=== PATIENT | female | born 1960 | race Caucasian/White ===

== ENCOUNTER 2022-05-20 14:32 | Observation (INO) ==
[2022-05-20] MEDS ORDERED: FAMOTIDINE 20 MG TAB PO ONE (18:34)
[2022-05-20] MEDS ORDERED: PANTOprazole 40 MG TAB PO STA (18:34)
--- NOTE | 2022-05-20 18:36 | Emergency Department Note ---
Impression & Plan Acute upper gastrointestinal bleeding, Thrombocytopenia ED Provider Note NAME: JOSELO JULIAN AGE: 62 SEX: F : 1960 ARRIVES VIA: Walk-In INFORMANT: Patient, ED PROVIDER(S): Joselo Valencia DO CHIEF COMPLAINT: GI bleeding HPI: The patient is a 62-year-old female who presented to the emergency department for an evaluation of GI bleeding. The patient has a history of cirrhosis secondary to hepatitis. She states that she started noticing nausea and vomiting as well as upper abdominal pain. She also noticed black emesis as well as black stool. The patient states that she was seen at an outside hospital where she was into an observation bed for 28 hours. She signed herself out AGAINST MEDICAL ADVICE and came to our facility. She did call her GI doctor while she was in triage in our facility. She was told to stay at our facility for further work-up. The patient has a history of esophageal varices. ROS: See above HPI for pertinent positives & negatives. A total of 10 systems reviewed and were otherwise negative. PAST MEDICAL HISTORY: See Below PAST SURGICAL HISTORY: See Below FAMILY HISTORY: See Below SOCIAL HISTORY: See Below HOME MEDICATIONS: See Below ALLERGIES: See Below VITALS: See Below PHYSICAL EXAMINATION: GENERAL: Patient is awake alert in no acute distress patient is resting comfortably and showing no signs of anxiety EYES: The conjunctivae are clear. The pupils are round and reactive. EARS, NOSE, MOUTH AND THROAT: The nose is without any evidence of any deformity. Mucous membranes are moist. Tongue is midline. NECK: The neck is nontender and supple. RESPIRATORY: Normal respiratory effort is noted there is no evidence of wheezing rhonchi or rales CARDIOVASCULAR: Regular rate and rhythm noted there no murmurs rubs or gallops normal S1 normal S2. GASTROINTESTINAL: The abdomen is soft and mildly distended. There is no guarding or rigidity noted. Rectal exam revealed black stool which was strongly heme positive. MUSCULOSKELETAL/EXTREMITIES: There is no evidence of gross deformity full range of motion is noted in the hips and shoulders. SKIN: There is no obvious evidence of any rash. Pedal edema was noted bilaterally. NEUROLOGIC: Patient is awake alert and oriented x3. MEDICAL DECISION MAKING: The patient is a 62-year-old female who presented to the emergency department for an evaluation of GI bleeding. The patient has a history of esophageal varices as well as cirrhosis. She started noticing black stool recently. She was admitted at a different facility but left that facility because they offered no GI evaluation. The patient presented to our emergency department. Vital signs were relatively stable. The patient was found to have anemia with strongly heme positive black stool. Given the patient's history and comorbidities I discussed this case with the on-call [facility]ist. They have agreed to evaluate the patient in the emergency department for further management and disposition. The patient was treated with proton pump inhibitor as well as H2 blockers. Triage Nursing notes reviewed. Prior medical records reviewed Vital Signs: reviewed and remarkable for no significant abnormalities Differential diagnosis: Diverticulosis, AVM, coagulopathy, colitis, inflammatory bowel disease, malignancy, Alexandar-Lloyd tear, esophagitis, peptic ulcer disease, variceal bleed, gastritis, epistaxis, fissure, hemorrhoids, as well as other pathologies. ER treatment provided: See below Diagnostics interpreted by me: ECG: none Cardiac Monitoring: An order was placed for continuous cardiac monitoring. The monitor shows a rate of 81 bpm with sinus rhythm. Laboratory studies: As stated above and show below. Imaging studies: See below Consultation(s): I discussed this case with Dr. Andrea who is on-call for the [facility]ist group. Past Med/Surg History Medical History Chronic hepatitis C with cirrhosis Esophageal varices Social History Smoking Status: Former smoker Feels Safe at Home: Yes Allergies Allergies Allergy/AdvReac Type Severity Reaction Status Date / Time STERIODS AdvReac Severe SEVERE Uncoded 05/20/22 21:27 BODY ACHES Home Meds Home Medications Medication Instructions Recorded Confirmed furosemide 40 mg tablet 40 mg PO DAILY 05/20/22 05/20/22 spironolactone 25 mg/5 mL oral 100 mg PO DAILY 05/20/22 05/20/22 suspension (CaroSpir) Results & Data (ED) Vital Signs Vital Signs - 24 hr 05/20/22 15:03 05/20/22 19:26 05/20/22 19:07 Temperature 36.4 C L Temperature Source Temporal Artery Scan Pulse Rate 88 85 Pulse Rate from SpO2 Sensor Respiratory Rate 18 12 Respiratory Effort / Characteristics Non-Labored Respiratory Depth Normal Respiratory Pattern Regular Blood Pressure 109/73 117/78 Blood Pressure Mean 85 91 Blood Pressure Position Sitting Pulse Oximetry 99 98 100 Oxygen Delivery Method Room Air Room Air Room Air Sepsis Recent Fever Within 48 Hours No Sepsis New/Unexplained Change in Mental Status No Sepsis Action Taken by Nursing No Action Required 05/20/22 20:00 05/20/22 20:10 05/20/22 20:30 Temperature Temperature Source Pulse Rate 76 84 81 Pulse Rate from SpO2 Sensor 78 84 Respiratory Rate 16 19 15 Respiratory Effort / Characteristics Respiratory Depth Respiratory Pattern Blood Pressure 106/91 96/59 L 115/75 Blood Pressure Mean 96 71 88 Blood Pressure Position Pulse Oximetry 98 98 99 Oxygen Delivery Method Room Air Room Air Room Air Sepsis Recent Fever Within 48 Hours Sepsis New/Unexplained Change in Mental Status Sepsis Action Taken by Nursing 05/20/22 21:00 05/20/22 21:30 Temperature Temperature Source Pulse Rate 84 81 Pulse Rate from SpO2 Sensor Respiratory Rate 15 14 Respiratory Effort / Characteristics Respiratory Depth Respiratory Pattern Blood Pressure 124/74 119/74 Blood Pressure Mean 90 89 Blood Pressure Position Pulse Oximetry 98 98 Oxygen Delivery Method Room Air Room Air Sepsis Recent Fever Within 48 Hours Sepsis New/Unexplained Change in Mental Status Sepsis Action Taken by Jail Medications Current Medication List: was personally reviewed by me Laboratory Data Attestation: I reviewed the patient's lab results. Result diagrams: 05/20/22 19:09 05/20/22 19:09 Lab Results 05/20/22 05/20/22 05/20/22 Range/Units 19:04 19:09 19:09 WBC 2.67 L (4.8-10.8) K/ul RBC 3.00 L (3.93-5.22) M/uL Hgb 10.2 L (12.0-16.0) g/dl Hct 29.5 L (34.1-44.9) % MCV 98.3 (80.0-100.0) fL MCH 34.0 (25.0-34.0) pg MCHC 34.6 (32.0-36.0) g/dL RDW Std Deviation 51.8 H (36.4-46.3) fL RDW Coeff of Supa 14.5 (11.5-14.5) % Plt Count 53 L (130-400) K/uL MPV 11.9 (9.4-12.3) fL Platelet Estimate Decreased L (Normal) PT (9.0-12.0) Seconds INR (0.9-1.1) APTT (21.0-31.0) Seconds PTT Ratio Sodium (136-145) mmol/L Potassium (3.5-5.1) mmol/L Chloride (98-107) mmol/L Carbon Dioxide (21-32) mmol/L Anion Gap (3-11) BUN (6-23) mg/dl Creatinine (0.6-1.2) mg/dl Est Cr Clr Drug Dosing ml/min Est GFR ( Amer) ml/min Est GFR (Non-Af Amer) ml/min BUN/Creatinine Ratio (10-20) Glucose (70-99(Fasting)) mg/dl Calcium (8.5-10.1) mg/dl Total Bilirubin (0.2-1.0) mg/dl AST (13-39) U/L ALT (7-52) U/L Alkaline Phosphatase (34-104) U/L Total Protein (6.0-8.3) gm/dl Albumin (3.4-5.0) gm/dl Globulin (2.5-4.0) gm/dl Albumin/Globulin Ratio (0.9-2) SARS-CoV-2, RNA, NAAT NEGATIVE (NEGATIVE) Blood Type O Positive Antibody Screen NEGATIVE 05/20/22 05/20/22 Range/Units 19:09 19:09 WBC (4.8-10.8) K/ul RBC (3.93-5.22) M/uL Hgb (12.0-16.0) g/dl Hct (34.1-44.9) % MCV (80.0-100.0) fL MCH (25.0-34.0) pg MCHC (32.0-36.0) g/dL RDW Std Deviation (36.4-46.3) fL RDW Coeff of Supa (11.5-14.5) % Plt Count (130-400) K/uL MPV (9.4-12.3) fL Platelet Estimate (Normal) PT 13.3 H (9.0-12.0) Seconds INR 1.3 H (0.9-1.1) APTT 22.3 (21.0-31.0) Seconds PTT Ratio 0.8 Sodium 136 (136-145) mmol/L Potassium 3.9 (3.5-5.1) mmol/L Chloride 107 (98-107) mmol/L Carbon Dioxide 24 (21-32) mmol/L Anion Gap 5 (3-11) BUN 21 (6-23) mg/dl Creatinine 0.68 (0.6-1.2) mg/dl Est Cr Clr Drug Dosing 101.2 ml/min Est GFR ( Amer) 108.7 ml/min Est GFR (Non-Af Amer) 93.7 ml/min BUN/Creatinine Ratio 30.9 H (10-20) Glucose 99 (70-99(Fasting)) mg/dl Calcium 9.0 (8.5-10.1) mg/dl Total Bilirubin 1.9 H (0.2-1.0) mg/dl AST 73 H (13-39) U/L ALT 71 H (7-52) U/L Alkaline Phosphatase 53 (34-104) U/L Total Protein 7.7 (6.0-8.3) gm/dl Albumin 3.5 (3.4-5.0) gm/dl Globulin 4.2 H (2.5-4.0) gm/dl Albumin/Globulin Ratio 0.8 L (0.9-2) SARS-CoV-2, RNA, NAAT (NEGATIVE) Blood Type Antibody Screen Administered Medications Discontinued Medications Famotidine (Famotidine 20 Mg Tab) 20 mg PO NOW ONE Stop: 05/20/22 18:35 Last Admin: 05/20/22 19:02 Dose: 20 mg Documented By: LUCIANO Pantoprazole Sodium (Pantoprazole 40 Mg Tab) 40 mg PO NOW STA Stop: 05/20/22 18:35 Last Admin: 05/20/22 19:02 Dose: 40 mg Documented By: LUCIANO Imaging Data Radiologist's Impression: Chest X-Ray 05/20/22 18:43 XR chest 1V portable HISTORY: vomiting COMPARISON: None. FINDINGS: The lungs are clear. Cardiac silhouette is normal in size. No pleural effusions. No pneumothorax. IMPRESSION: No acute process. ACT 112: Negative or not required by law. Electronically signed by: Herb Dominique M.D. 05/20/2022 8:09 PM KUB X-Ray 05/20/22 18:43 KUB HISTORY: Vomiting. COMPARISON: None. FINDINGS: The bowel gas pattern is unremarkable. There are no dilated loops of small bowel to suggest an obstruction. No renal calculi. No ureteral calculi. No pneumoperitoneum or pneumatosis. The spleen appears enlarged. IMPRESSION: 1. No evidence for bowel obstruction. 2. The spleen appears enlarged. This can be confirmed with dedicated splenic ultrasound. ACT 112: Negative or not required by law. Electronically signed by: Herb Dominique M.D. 05/20/2022 8:58 PM Discharge Plan Visit Data Chief Complaint: Vomiting Stated Complaint: BLACK VOMIT ED Provider: Joselo Valencia Discharge Problem: Acute upper gastrointestinal bleeding, Thrombocytopenia Patient Disposition: Being Evaluated by Hospitalist Forms Stand Alone Forms: [facility] Prescriptions Prescriptions: No Action furosemide 40 mg tablet 40 mg PO DAILY CaroSpir 25 mg/5 mL suspension 100 mg PO DAILY Rx Instructions: TAKES 20 ML DAILY Referrals Referrals: PCP,NO [Physician] -
[2022-05-20 19:34] LABS: INR 1.3 (0.9-1.1); Partial Thromboplastin Ratio 0.8; Partial Thromboplastin Time 22.3 Seconds (21.0-31.0); Prothrombin Time 13.3 Seconds (9.0-12.0)
[2022-05-20 19:43] LABS: Hematocrit (blood only) 29.5 % (34.1-44.9); Hemoglobin 10.2 g/dl (12.0-16.0); Mean Corpuscular Hgb Conc 34.6 g/dL (32.0-36.0); Mean Corpuscular Volume 98.3 fL (80.0-100.0); Mean Platelet Volume 11.9 fL (9.4-12.3); Platelet Count 53 K/uL (130-400); Platelet Estimate Decreased (Normal); RDW Coefficient of Variation 14.5 % (11.5-14.5); RDW Standard Deviation 51.8 fL (36.4-46.3); White Blood Count 2.67 K/ul (4.8-10.8)
[2022-05-20 19:51] LABS: Albumin Globulin Ratio 0.8 (0.9-2); Albumin Level 3.5 gm/dl (3.4-5.0); BUN Creatinine Ratio 30.9 (10-20); Bilirubin,Total 1.9 mg/dl (0.2-1.0); Creatinine Clr Calc Pharmacy 101.2 ml/min; Est GFR (African American) 108.7 ml/min; Est GFR (Non-African American) 93.7 ml/min; Globulin 4.2 gm/dl (2.5-4.0); Potassium 3.9 mmol/L (3.5-5.1); Total Protein 7.7 gm/dl (6.0-8.3)
--- NOTE | 2022-05-20 20:11 | XRay Report ---
XR chest 1V portable HISTORY: vomiting COMPARISON: None. FINDINGS: The lungs are clear. Cardiac silhouette is normal in size. No pleural effusions. No pneumot horax. IMPRESSION: No acute process. ACT 112: Negative or not required by law. Electronically signed by: Herb Dominique M.D. 05/20/2022 8:09 PM
--- NOTE | 2022-05-20 21:00 | XRay Report ---
KUB HISTORY: Vomiting. COMPARISON: None. FINDINGS: The bowel gas pattern is unremarkable. There are no dilated loops of small bowel to suggest an obstruction. No renal calculi. No ureteral calculi. No pneumoperitoneum or pneumatosis. The sple en appears enlarged. IMPRESSION: 1. No evidence for bowel obstruction. 2. The spleen appears enlarged. This can be confirmed with dedicated splenic ultrasound. ACT 112: Negative or not required by law. Electronically signed by: Herb Dominique M.D. 05/20/2022 8:58 PM
[2022-05-21] MEDS ORDERED: PANTOPRAZOLE BOLUS/DRIP 1 EACH IV STA (02:19)
[2022-05-21] MEDS ORDERED: NITROGLYCERIN SL 0.4 MG/TAB TAB SL PRN (02:19)
[2022-05-21] MEDS ORDERED: STAT IV STA (02:19)
[2022-05-21] MEDS: SODIUM CHLORIDE 0.9% 1000ML 1,000 ML IV SCH ×2 (02:41→17:18)
--- NOTE | 2022-05-21 02:41 | History and Physical Report ---
DATE OF ADMISSION: 05/21/2022. CHIEF COMPLAINT: Hematemesis and black stools. HISTORY OF PRESENT ILLNESS: A 62-year-old female patient with past medical history significant for liver cirrhosis secondary to hepatitis C, history of variceal bleeding, comes with episode of black stool and hematemesis. The patient says she had hematemesis on Thursday morning. She went to the outside hospital. She stayed for like, 28 hours and signed out AMA. On Thursday evening, she had a small episode of black stool and came here. Currently, no more episodes. She is hemodynamically stable, resting comfortably. Denies any abdominal pain. Denies any nausea or vomiting, no chest pain, no shortness of breath, no cough, no fevers, no headache, no blurred visions, no earache, no runny nose, no sore throat. No abdominal pain. Normal bladder movements. ALLERGIES: STEROIDS. PAST MEDICAL HISTORY: As mentioned above. PAST SURGICAL HISTORY: Esophageal banding. MEDICATIONS: The patient is on Lasix 40 mg p.o. daily, spironolactone 100 mg p.o. daily. FAMILY HISTORY: Denies any family history. SOCIAL HISTORY: Denies any smoking. Denies alcohol. Used to smoke many years ago. REVIEW OF SYSTEMS: As per HPI. Rest of review of systems is negative. PHYSICAL EXAMINATION: GENERAL: The patient is of moderate build, not in acute distress. VITAL SIGNS: Temperature 36.4, pulse 78, respiratory rate 16, blood pressure 115/70, oxygen 98% on room air. HEENT: Pupils equal, round and reactive to light. Oral mucosa moist. NECK: No JVD. No neck masses. CARDIOVASCULAR: S1 and S2 heard. Regular rate and rhythm. No murmur, no gallop. RESPIRATORY SYSTEM: Normal AP diameter. No accessory muscle use. No wheezing, no crackles. ABDOMEN: Soft, bowel sounds present, nontender, no distention. CENTRAL NERVOUS SYSTEM: Cranial nerves II through XII are grossly intact, nonfocal. EXTREMITIES: No edema, no erythema. LABORATORY DATA: WBC 2.6, hemoglobin 10.2, hematocrit 29.5, platelets 53. PT 11.3, INR 1.3, PTT 22.3. Sodium 136, potassium 3.9, chloride 107, bicarbonate 24, BUN 21, creatinine 0.6, serum glucose 99, calcium 9, total bilirubin 1.9, AST 73, ALT 71, alkaline phosphatase 53. SARS-CoV-2 rapid test negative. KUB x-ray, no evidence of bowel obstruction. Spleen appears enlarged. IMAGING DATA: Chest x-ray, no acute process. ASSESSMENT AND PLAN: This 62-year-old female presents with hematemesis and black stool. 1. 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 She was in outside hospital on Thursday when she had this episode of hematemesis and signed out AMA. Currently, no more episodes. One episode of small black stool yesterday. Hemoglobin is 10.2. Blood consent obtained. We will follow H and H q.6 hours, started on Protonix drip and Sandostatin drip, n.p.o. Consult GI in the a.m. Closely monitor in the [employer]. 2. Liver liver cirrhosis secondary to hepatitis C, pancytopenia secondary to liver cirrhosis: Continue home medication, Lasix, spironolactone,Follow up with GI.. 4. Deep venous thrombosis prophylaxis: Sequential compression devices for now. DISPOSITION: Closely monitor in the [employer]. Level 1 full code. Job ID: [id number] [facility]
[2022-05-21] MEDS ORDERED: OCTREOTIDE ACETATE 500 MCG in DEXTROSE 5% 100 ML IV SCH (02:45)
[2022-05-21] MEDS ORDERED: PANTOprazole 80 MG in DEXTROSE 5% 100 ML IV ONE (02:45)
[2022-05-21] MEDS: PANTOprazole 40 MG in DEXTROSE 5% 100 ML IV SCH ×2 (04:13→10:41)
[2022-05-21 06:09] LABS: Basophils # (auto) 0.02 K/uL (0-0.2); Eosinophils # (auto) 0.11 K/uL (0-0.50); Eosinophils % (auto) 5.3 %; Hematocrit (blood only) 27.7 % (34.1-44.9); Hemoglobin 9.6 g/dl (12.0-16.0); Immature Granulocytes # (auto) 0.01 K/uL (0.00-0.02); Immature Granulocytes % (auto) 0.5 %; Lymphocytes # (auto) 0.41 K/uL (1.2-3.4); Lymphocytes % (auto) 19.7 %; Mean Platelet Volume 11.5 fL (9.4-12.3); Monocytes % (auto) 14.4 %; Neutrophils # (auto) 1.23 K/uL (1.4-6.5); Neutrophils % (auto) 59.1 %; Platelet Count 50 K/uL (130-400); White Blood Count 2.08 K/ul (4.8-10.8)
[2022-05-21 06:39] LABS: BUN Creatinine Ratio 27.7 (10-20); Calcium 8.3 mg/dl (8.5-10.1); Creatinine Clr Calc Pharmacy 105.5 ml/min; Est GFR (African American) 110.3 ml/min; Est GFR (Non-African American) 95.2 ml/min; Magnesium 1.7 mg/dl (1.7-2.4); Potassium 3.6 mmol/L (3.5-5.1)
[2022-05-21 06:42] LABS: Mean Corpuscular Hgb Conc 34.7 g/dL (32.0-36.0); Mean Corpuscular Volume 98.2 fL (80.0-100.0); RDW Coefficient of Variation 14.2 % (11.5-14.5); RDW Standard Deviation 50.4 fL (36.4-46.3); Red Blood Count 2.82 M/uL (3.93-5.22)
--- NOTE | 2022-05-21 08:37 | Gastrointestinal Consultation ---
Date of Consultation May 21, 2022 Assessment & Plan (1) Acute upper gastrointestinal bleeding: Pt is a 62 yo female w Hep C cirrhosis (MELD 13), complicated by variceal bleeding s/p banding 1yr ago. She is currently established w [facility], not on liver transplant list. She presented initially at [facility] 2 days ago w c/o n/v, bloody and coffee ground emesis. She signed out AMA due to long wait time to get transferred to [facility] and came to [facility] for further care. No more n/v since 2 days ago, denies any melena, abd exam benign today - NPO - EGD eval today by Dr. Elizabeth Jean - PPI gtt, Octreotide gtt - Avoid NSAIDs - Further recs after EGD completed Supervising Physician Co-Signing Physician Notes I saw and evaluated the patient. We were consulted for evaluation of dark stool which occurred several days ago. The patient was at an outside facility ([place]) and the hospital service had attempted to transfer her to [facility] unsuccessfully. The patient signed out AMA and came to this facility for evaluation. She reports having no hematemesis, coffee-ground emesis or passage of dark stool in the last 2 days. Her history is notable for a history of cirrhosis as result of hepatitis C and alcohol abuse. She is presently followed by [facility] near [place]. Physical examination No obvious distress Obese abdomen No fluid wave noted Impression: Patient with a history of melena several days ago, this could represent portal hypertensive gastropathy, peptic ulcer disease or even esophageal varices. We will plan to perform upper endoscopy today, her long- term care will continue to be managed by her normal GI provider in [place]. History of Present Illness Reason for Consultation: Hematemesis, black stools Requesting Physician: Dr. Bello Parsons Attending Physician: Dr. Elizabeth Jean History of Present Illness Pt is a 62 yo female w PMHx of Hep C cirrhosis complicated by variceal bleeding s/p banding 1 yr ago, currently managed by [facility], not on liver tranpslant team (pt reports MELD is low) who presented last night w c/o hematemesis and black stools which started 2 days ago. She was having nasal congestion, with lots of phlegm, less appetite in the last few days, then woke up Thursday having n/v and saw bloody emesis. Went to [facility] and was awaiting transfer to [place] for about 48hrs. She decided then to sign out AMA and go to [facility] to receive further care. She reports last episode of vomiting was about 2 days ago, w blood and also coffee grounds emesis on last episode. ? if had any black or tarry stools. Per HPI she did but currently she denies ever having any. No fever, chills, CP, SOB, abd pain, bowel habit changes, leg edema. VS stable w occasional low BP in 90s/70s. Currently has PPI IV and Octreotide IV support. H/H 04/29, Plt 50, INR 1.3, BUN 18, Cr 0.65, LFTs: Tb gordy 1.9, AST 73, ALT 71, Alk phos 53. CXR and KUB wo acute processes. + "occasional" use of ETOH, denies tobacco, illicit drugs, NSAIDs. Denies hx of abd surgery; Denies family hx of GI malignancy Allergies Allergy/AdvReac Type Severity Reaction Status Date / Time Corticosteroids AdvReac Severe STEROIDS Verified 05/21/22 09:36 (Glucocorticoids) CAUSE SEVERE BODY ACHES Home Medications Medication Instructions Recorded Confirmed Type furosemide 40 mg tablet 40 mg PO DAILY 05/20/22 05/20/22 History spironolactone 25 mg/5 mL oral 100 mg PO DAILY 05/20/22 05/20/22 History suspension (CaroSpir) Patient History Medical History Chronic hepatitis C with cirrhosis Esophageal varices Social History Smoking Status: Former smoker Preferred Language: Slovak Communication Ability: Effective Compensation Expert Required: No Beliefs That Will Affect Care: None Current Living Situation: Spouse Other Information That Helps Us Care for You: No Feels Safe at Home: Yes Safety Concerns: Feels Safe At This Time Assistive Devices: Contacts Review of Systems Review of Systems: All systems reviewed & are unremarkable except as noted in HPI & below Physical Exam Constitutional: WD/WN, vitals as above well groomed, cooperative and comfortable Eyes: PERRL, conjunctivae normal, anicteric sclerae ENMT: external ear and nose normal, oropharynx normal Respiratory: normal respiratory effort, lungs clear to auscultation Cardiovascular: RRR, no murmur, no edema Gastrointestinal (Abdomen): normal bowel sounds, soft, nontender, no hepatosplenomegaly Skin: no rashes, warm and dry no jaundice Neurologic: Motor/Sensory: no asterixis Psychiatric: A+Ox3, euthymic affect Lymphatic: no lymphedema Results & Data ([facility]) Vital Signs (Past 12 Hours) Vital Signs Temp Pulse Pulse Pulse Resp BP BP 05/21/22 07:45 36.7 C 79 18 103/70 05/21/22 04:00 36.6 C 74 18 99/63 L 05/21/22 02:19 86 05/21/22 02:19 36.5 C 84 18 05/21/22 00:00 78 16 05/20/22 21:30 81 14 119/74 05/20/22 21:00 84 15 124/74 BP Pulse Ox O2 Del Method 05/21/22 07:45 97 Room Air 05/21/22 04:00 97 Room Air 05/21/22 02:19 05/21/22 02:19 112/72 96 Room Air 05/21/22 00:00 115/70 98 Room Air 05/20/22 21:30 98 Room Air 05/20/22 21:00 98 Room Air
[2022-05-21] MEDS ORDERED: FUROSEMIDE 40 MG TAB PO SCH (09:00)
[2022-05-21] MEDS ORDERED: cefTRIAXone SODIUM 2,000 MG in DEXTROSE 5% 50 ML IV SCH (09:30)
--- NOTE | 2022-05-21 09:48 | Anesthesiology Consultation ---
Date of Service May 21, 2022 Assessment & Plan Chart Review Chart Review: Acceptable Risk for Surgery and Patient NOT seen in Pre Admission Testing Consults Requested none ASA ASA3 Proposed Anesthesia Anesthesia Type: MAC Risk / Benefits Reviewed With: PT / POA / Parent / Guardian, Accepts Plan and Informed Consent Obtained History Surgery Operation Date: 05/21/22 16:30 Proposed Procedures p Esophagogastroduodenoscopy Dr Ted Jean, DO Height/Weight Height: 5 ft 7 in Weight: 93.7 kg Allergies Allergy/AdvReac Type Severity Reaction Status Date / Time Corticosteroids AdvReac Severe STEROIDS Verified 05/21/22 09:36 (Glucocorticoids) CAUSE SEVERE BODY ACHES Medications Home Medications Medication Instructions Recorded Confirmed Last Taken furosemide 40 mg tablet 40 mg PO DAILY 05/20/22 05/20/22 05/20/22 spironolactone 25 mg/5 mL oral 100 mg PO DAILY 05/20/22 05/20/22 05/20/22 suspension (CaroSpir) Active Medications Generic Name Dose Route Start Last Admin Trade Name Quanq PRN Reason Stop Dose Admin Sodium Chloride 1,000 mls @ 80 mls/hr 05/21/22 02:19 05/21/22 09:23 Nss 1000ml IV 06/20/22 02:18 0 mls/hr .[id number] HAYDER Infusion Pantoprazole Sodium 40 mg/ 100 mls @ 20 mls/hr 05/21/22 03:00 05/21/22 09:22 Dextrose IV 06/20/22 02:59 Infused Q5H HAYDER Infusion 8 MG/HR Octreotide Acetate 500 mcg/ 100.5 mls @ 10 mls/hr 05/21/22 02:45 05/21/22 09:23 Dextrose IV 06/20/22 02:44 0 mls/hr .[id number] HAYDER Infusion Miscellaneous 1 each 05/21/22 08:00 05/21/22 07:43 Carospir~Order Awaiting Action N/A 06/20/22 07:59 Not Given QS HAYDER NPO Date Last Intake of Fluids: 05/21/22 Time Last Intake of Fluids: 08:00 Last Intake of Fluids Comment: sip Date Last Intake of Solids: 05/18/22 Time Last Intake of Solids: 12:00 Past Medical History Medical History Chronic hepatitis C with cirrhosis Esophageal varices Exercise / Class Metabolic Activity II 4-5 Yardwork/Stairs/Walk up hill Past Anesthesia History No Hx of Anesthesia Complications and No Family Hx of Anesthesia Complications History of PONV No Hx of PONV and No Hx of Motion Sickness Social History Smoking Status: Former smoker Physical Exam Vital Signs Last Vital Signs Temp 36.4 C L 05/21/22 09:39 Pulse 78 05/21/22 09:39 Resp 18 05/21/22 09:39 BP 117/71 05/21/22 09:39 Pulse Ox 98 05/21/22 09:39 O2 Del Method 05/21/22 09:39 ENMT Mouth: no dentition abnormality Thyromental Distance: > or= 3.5 Finger Breadths Mallampati Class: II Neck normal visual inspection Respiratory normal respiratory effort Auscultation: lungs clear to auscultation bilaterally Cardiovascular Rate/Rhythm: regular rate and regular rhythm Psychiatric Orientation: alert Testing Laboratory Results 05/21/22 05:22 05/21/22 05:22 PT 13.3 Seconds (9.0-12.0) H 05/20/22 19:09 INR 1.3 (0.9-1.1) H 05/20/22 19:09 APTT 22.3 Seconds (21.0-31.0) 05/20/22 19:09 Blood Type O Positive 05/20/22 19:09 Antibody Screen NEGATIVE 05/20/22 19:09
[2022-05-21] MEDS ORDERED: PROPOFOL IV EMULSION 10 MG/ML 20 ML VIAL IV ONE (10:16)
[2022-05-21] MEDS ORDERED: LIDOCAINE 2% MPF LOCAL 5 ML VIAL INFIL ONE (10:16)
--- NOTE | 2022-05-21 10:17 | History & Physical Bridge Note ---
Date of Service May 21, 2022 History & Physical Bridge Note I have examined the patient, reviewed the History & Physical and in the interval since the performance of the History & Physical I have noted the following changes of clinical significance: no changes noted. We are planning to do an upper endoscopy today given patient's history of melena several days ago. The patient does have a history of liver disease and is followed by their gastroenterology in [place]. She reports her last upper endoscopy was performed about 1 year ago but does not recall the results. She does report a history of esophageal varices and had several sessions of band ligation performed. We have discussed the risks and benefits of upper endoscopy to include bleeding infection perforation pain aspiration and need for follow-up studies.
--- NOTE | 2022-05-21 10:38 | GI REPORT ---
Patient Name: Ave Sheets Procedure Date: 05/21/2022 10:14 AM Date of : 1960 Admit Type: Inpatient Age: 62 Gender: Female Attending MD: Elizabeth Jean DO Procedure: Upper GI endoscopy Providers: Elizabeth Jean DO Referring MD: Anna Rodriguez Md Indications: Melena Medicines: Monitored Anesthesia Care Complications: No immediate complications. Estimated blood loss: Minimal. Estimated Blood Loss: Estimated blood loss was minimal. Procedure: Pre-Anesthesia Assessment: - Prior to the procedure, a History and Physical was performed, and patient medications, allergies and sensitivities were reviewed. The patient's tolerance of previous anesthesia was reviewed. - The risks and benefits of the procedure and the sedation options and risks were discussed with the patient. All questions were answered and informed consent was obtained. - Patient identification and proposed procedure were verified prior to the procedure by the physician, the nurse and the 911 emergency services dispatcher. The procedure was verified in the procedure room. - Pre-procedure physical examination revealed no contraindications to sedation. - ASA Grade Assessment: III - A patient with severe systemic disease. - After reviewing the risks and benefits, the patient was deemed in satisfactory condition to undergo the procedure. - The anesthesia plan was to use monitored anesthesia care (MAC). - Immediately prior to administration of medications, the patient was re-assessed for adequacy to receive sedatives. - The heart rate, respiratory rate, oxygen saturations, blood pressure, adequacy of pulmonary ventilation, and response to care were monitored throughout the procedure. - The physical status of the patient was re-assessed after the procedure. After obtaining informed consent, the endoscope was passed under direct vision. Throughout the procedure, the patient's blood pressure, pulse, and oxygen saturations were monitored continuously. The Endoscope was introduced through the mouth, and advanced to the third part of duodenum. The upper GI endoscopy was accomplished without difficulty. The patient tolerated the procedure well. Findings: Three columns of grade I varices with no bleeding and no stigmata of recent bleeding were found in the lower third of the esophagus, 33 to 39 cm from the incisors. They were 4 mm in largest diameter. No red liliane signs were present. Scarring from prior treatment was visible. Evidence of partial eradication was visible. Severe portal hypertensive gastropathy was found in the entire examined stomach. Biopsies were taken with a cold forceps for histology. The pathology specimen was placed into Bottle A. Estimated blood loss was minimal. The examined duodenum was normal. Impression: - Grade I esophageal varices with no bleeding and no stigmata of recent bleeding. - Portal hypertensive gastropathy, likely culprit of melena several days ago. Biopsied. - Normal examined duodenum. Recommendation: - Return patient to [facility] care. - Advance diet as tolerated. - Use Prilosec (omeprazole) 20 mg PO daily. - Use sucralfate tablets 1 gram PO BID. - Avoid use of nonsteroidals - Await pathology results. - Return to [facility] ([facility] as previously scheduled. Elizabeth Jean D.O. Elizabeth Jean, 05/21/2022 10:38:14 AM This report has been signed electronically. Note Initiated On: 05/21/2022 10:14 AM Number of Addenda: 0 I attest to the content of the Intraoperative Record and orders documented therein, exceptions below {[id number]}
--- NOTE | 2022-05-21 10:42 | Communication Note ---
Date of Service: May 21, 2022 And underwent upper endoscopy for evaluation of melena several days ago. The patient was found to have partially treated esophageal varices as noted on his prior history. Patient had severe hypertensive gastropathy which is the likely culprit of her melena. No evidence of active bleeding. Recommendations low sodium diet Avoid nonsteroidals Protonix or omeprazole 20 mg/day Carafate 1 g twice daily Patient should follow-up with regular GI provider in [place] Call with any questions or concerns, GI to sign off
[2022-05-21 12:53] LABS: Hematocrit (blood only) 29.4 % (34.1-44.9); Hemoglobin 10.4 g/dl (12.0-16.0)
--- NOTE | 2022-05-21 15:08 | Anesthesiology Progress Note ---
Date of Service May 21, 2022 Anesthesia Post Procedure Vital Signs Vital Signs: Temp Pulse Pulse Pulse Resp BP BP 05/21/22 11:51 36.4 C L 75 20 110/79 05/21/22 11:02 80 80 16 99/51 L 05/21/22 10:49 76 76 16 98/52 L 05/21/22 10:35 36.6 C 76 76 16 100/67 05/21/22 09:39 36.4 C L 78 78 18 117/71 05/21/22 07:45 36.7 C 79 18 103/70 05/21/22 04:00 36.6 C 74 18 99/63 L 05/21/22 02:19 86 05/21/22 02:19 36.5 C 84 18 05/21/22 00:00 78 16 05/20/22 21:30 81 14 119/74 05/20/22 21:00 84 15 124/74 05/20/22 20:30 81 15 115/75 05/20/22 20:10 84 19 96/59 L 05/20/22 20:00 76 16 106/91 05/20/22 19:07 85 12 117/78 05/20/22 19:26 BP Pulse Ox O2 Del Method 05/21/22 11:51 99 Room Air 05/21/22 11:02 98 Room Air 05/21/22 10:49 98 Room Air 05/21/22 10:35 98 Room Air 05/21/22 09:39 98 Room Air 05/21/22 07:45 97 Room Air 05/21/22 04:00 97 Room Air 05/21/22 02:19 05/21/22 02:19 112/72 96 Room Air 05/21/22 00:00 115/70 98 Room Air 05/20/22 21:30 98 Room Air 05/20/22 21:00 98 Room Air 05/20/22 20:30 99 Room Air 05/20/22 20:10 98 Room Air 05/20/22 20:00 98 Room Air 05/20/22 19:07 100 Room Air 05/20/22 19:26 98 Room Air Transfer of Care Handoff Completed per policy Notes Mental Status: alert / awake / arousable Patient Amnestic to Procedure: Yes Nausea / Vomiting: adequately controlled Pain: adequately controlled Airway Patency, RR, SpO2: stable & adequate BP & HR: stable & adequate Hydration State: stable & adequate Anesthetic Complications: no major complications apparent
--- NOTE | 2022-05-21 17:08 | Hospitalist Progress Note ---
Date of Service May 21, 2022 Assessment & Plan (1) Acute upper gastrointestinal bleeding: Plan: ASSESSMENT AND PLAN: This 62-year-old female presents with hematemesis and black stool. 1. 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 She was in outside hospital on Thursday when she had this episode of hematemesis and signed out AMA. Currently, no more episodes. One episode of small black stool yesterday. Hemoglobin is 10.2. Blood consent obtained. We will follow H and H q.6 hours, started on Protonix drip and Sandostatin drip, n.p.o. Consult GI in the a.m. Closely monitor in the med tele. 05/21 Status post EGD: Impression: - Grade I esophageal varices with no bleeding and no stigmata of recent bleeding. - Portal hypertensive gastropathy, likely culprit of melena several days ago. Biopsied. - Normal examined duodenum. Recommendation: - [facility] patient to [facility] care. - Advance diet as tolerated. - Use Prilosec (omeprazole) 20 mg PO daily. - Use sucralfate tablets 1 gram PO BID. - Avoid use of nonsteroidals - Await pathology results. - [facility] as previously scheduled. Hemoglobin remaining stable around 10 No recurrence of melena hematochezia Continue Protonix, sucralfate p.o. 2. Liver liver cirrhosis secondary to hepatitis C, pancytopenia secondary to liver cirrhosis: Hold diuretics today 4. Deep venous thrombosis prophylaxis: Sequential compression devices for now. DISPOSITION: Anticipate discharge home tomorrow Admission and Anticipated Discharge Date Admission Date: May 21, 2022 Subjective Follow-up for melena, etc. Status post EGD Seen sitting up in bed comfortable, not in distress In good spirits States she feels fine overall Denies abdominal pain, nausea or vomiting No recurrence of melena or hematochezia today Denies shortness of breath, chest pain, palpitations, dizziness No other symptom Review of Systems Review of Systems: all noted and negative except for above Physical Exam Physical Exam: General- oriented x 3, not in distress, speaks in sentences with no effort or accessory muscle use Eyes- anicteric Neck- no JVD Lungs- clear breath sounds bilaterally, no rales/wheezes Heart- normal rate, regular rhythm; no murmurs Abdomen- normal bowel sounds, nondistended, soft, nontender Extremities- no pretibial edema, no calf tenderness Neuro- alert, oriented x 3; no gross focal neurologic deficits Skin- warm & dry Results & Data Results & Data ([facility]) Vital Signs (Past 12 Hours) Vital Signs Temp Pulse Pulse Resp BP Pulse Ox O2 Del Method 05/21/22 15:44 37.5 C 70 12 109/75 98 Room Air 05/21/22 11:51 36.4 C L 75 20 110/79 99 Room Air 05/21/22 11:02 80 80 16 99/51 L 98 Room Air 05/21/22 10:49 76 76 16 98/52 L 98 Room Air 05/21/22 10:35 36.6 C 76 76 16 100/67 98 Room Air 05/21/22 09:39 36.4 C L 78 78 18 117/71 98 Room Air 05/21/22 07:45 36.7 C 79 18 103/70 97 Room Air all noted and reviewed including below
[2022-05-21 17:12] LABS: Hematocrit (blood only) 30.5 % (34.1-44.9); Hemoglobin 10.8 g/dl (12.0-16.0)
[2022-05-21] MEDS ORDERED: PANTOprazole 40 MG TAB PO SCH (21:00)
[2022-05-21] MEDS: SUCRALFATE 1 GM/10 ML UDC PO SCH (21:39)
[2022-05-22] MEDS: SUCRALFATE 1 GM/10 ML UDC PO SCH (07:35)
[2022-05-22] MEDS ORDERED: PANTOprazole 40 MG TAB PO SCH (09:00)
--- NOTE | 2022-05-22 09:47 | Hospitalist Progress Note ---
Date of Service May 22, 2022 Assessment & Plan (1) Acute upper gastrointestinal bleeding: Plan: ASSESSMENT AND PLAN: This 62-year-old female presents with hematemesis and black stool. 1. 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 She was in outside hospital on Thursday when she had this episode of hematemesis and signed out AMA. Currently, no more episodes. One episode of small black stool yesterday. Hemoglobin is 10.2. Blood consent obtained. We will follow H and H q.6 hours, started on Protonix drip and Sandostatin drip, n.p.o. Consult GI in the a.m. Closely monitor in the med tele. 05/21 Status post EGD: Impression: - Grade I esophageal varices with no bleeding and no stigmata of recent bleeding. - Portal hypertensive gastropathy, likely culprit of melena several days ago. Biopsied. - Normal examined duodenum. Recommendation: - Return patient to [facility]. - Advance diet as tolerated. - Use Prilosec (omeprazole) 20 mg PO daily. - Use sucralfate tablets 1 gram PO BID. - Avoid use of nonsteroidals - Await pathology results. - [facility] ([facility] as previously scheduled. Hemoglobin remaining stable around 10 No recurrence of melena hematochezia Continue Protonix, sucralfate p.o. Follow-up with PCP in 1 week Follow-up with grade recorder in 2 to 3 weeks Advised to avoid alcohol 2. Liver liver cirrhosis secondary to hepatitis C, pancytopenia secondary to liver cirrhosis: Resume usual diuretics Disposition Discharge to home Follow-up with PCP in 1 week Follow-up with GI in 2 to 3 weeks plan of care discussed with patient in detail and at length all questions answered She is understanding, agreeable, comfortable with the plan of care Admission and Anticipated Discharge Date Admission Date: May 21, 2022 Subjective Follow-up for melena, liver cirrhosis, etc. Was seen sitting up in bed, in good spirits States she feels much better overall No melena or hematochezia No abdominal pain, nausea or vomiting, fevers or chills No dizziness, chest pain, shortness of breath No other symptoms Ambulating with no problems States she is ready for discharge today Review of Systems Review of Systems: all noted and negative except for above Physical Exam Physical Exam: General- oriented x 3, not in distress, speaks in sentences with no effort or accessory muscle use Eyes- anicteric Neck- no JVD Lungs- clear breath sounds bilaterally, no crackles or wheezes Heart- normal rate, regular rhythm; no murmurs Abdomen- normal bowel sounds, nondistended, soft, nontender Extremities- no pretibial edema, no calf tenderness Neuro- alert, oriented x 3; no gross focal neurologic deficits Skin- warm & dry Results & Data Results & Data ([facility]) Vital Signs (Past 12 Hours) Vital Signs Temp Pulse Pulse Resp BP Pulse Ox O2 Del Method 05/22/22 08:13 36.6 C 78 20 128/84 99 Room Air 05/22/22 02:49 36.7 C 78 18 106/71 97 Room Air 05/21/22 23:41 36.8 C 80 18 97/60 L 97 Room Air 05/21/22 23:17 74 all noted and reviewed including below
--- NOTE | 2022-05-22 17:57 | Discharge Summary ---
Discharge Summary Date of Service May 22, 2022 Notes For Next Care Provider Repeat CBC on follow-up with primary care physician 1 week postdischarge Medication Changes From Visit Omeprazole 20 mg p.o. daily Sulfate 1 g twice daily Admission HPI Per Admitting Provider HISTORY OF PRESENT ILLNESS: A 62-year-old female patient with past medical history significant for liver cirrhosis secondary to hepatitis C, history of variceal bleeding, comes with episode of black stool and hematemesis. The patient says she had hematemesis on Thursday morning. She went to the outside hospital. She stayed for like, 28 hours and signed out AMA. On Thursday evening, she had a small episode of black stool and came here. Currently, no more episodes. She is hemodynamically stable, resting comfortably. Denies any abdominal pain. Denies any nausea or vomiting, no chest pain, no shortness of breath, no cough, no fevers, no headache, no blurred visions, no earache, no runny nose, no sore throat. No abdominal pain. Normal bladder movements. Admission Exam Per Admitting Provider GENERAL: The patient is of moderate build, not in acute distress. VITAL SIGNS: Temperature 36.4, pulse 78, respiratory rate 16, blood pressure 115/70, oxygen 98% on room air. HEENT: Pupils equal, round and reactive to light. Oral mucosa moist. NECK: No JVD. No neck masses. CARDIOVASCULAR: S1 and S2 heard. Regular rate and rhythm. No murmur, no gallop. RESPIRATORY SYSTEM: Normal AP diameter. No accessory muscle use. No wheezing, no crackles. ABDOMEN: Soft, bowel sounds present, nontender, no distention. CENTRAL NERVOUS SYSTEM: Cranial nerves II through XII are grossly intact, nonfocal. EXTREMITIES: No edema, no erythema. Principal Dx & Hospital Course #1 = Principal Diagnosis (1) Acute upper gastrointestinal bleeding: ASSESSMENT AND PLAN: This 62-year-old female presents with hematemesis and black stool. 1. 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 She was in outside hospital on Thursday when she had this episode of hematemesis and signed out AMA. Currently, no more episodes. One episode of small black stool yesterday. Hemoglobin is 10.2. Blood consent obtained. We will follow H and H q.6 hours, started on Protonix drip and Sandostatin drip, n.p.o. Consult GI in the a.m. Closely monitor in the med tele. 05/21 Status post EGD: Impression: - Grade I esophageal varices with no bleeding and no stigmata of recent bleeding. - Portal hypertensive gastropathy, likely culprit of melena several days ago. Biopsied. - Normal examined duodenum. Recommendation: - Return patient to [facility]. - Advance diet as tolerated. - Use Prilosec (omeprazole) 20 mg PO daily. - Use sucralfate tablets 1 gram PO BID. - Avoid use of nonsteroidals - Await pathology results. - Return to [facility] ([facility] as previously scheduled. Stomach, biopsy: - No diagnostic abnormality. - Helicobacter pylori immunohistochemistry stain: Negative. Hemoglobin remaining stable around 10 No recurrence of melena hematochezia Continue Protonix, sucralfate p.o. Follow-up with PCP in 1 week Follow-up with art professor in 2 to 3 weeks Advised to avoid alcohol 2. Liver liver cirrhosis secondary to hepatitis C, pancytopenia secondary to liver cirrhosis: Resume usual diuretics Disposition Discharge to home Follow-up with PCP in 1 week Follow-up with GI in 2 to 3 weeks plan of care discussed with patient in detail and at length all questions answered She is understanding, agreeable, comfortable with the plan of care Discharge Exam General- oriented x 3, not in distress, speaks in sentences with no effort or accessory muscle use Eyes- anicteric Neck- no JVD Lungs- clear breath sounds bilaterally, no crackles or wheezes Heart- normal rate, regular rhythm; no murmurs Abdomen- normal bowel sounds, nondistended, soft, nontender Extremities- no pretibial edema, no calf tenderness Neuro- alert, oriented x 3; no gross focal neurologic deficits Skin- warm & dry Updated Medication List Medication Instructions Recorded Confirmed Type furosemide 40 mg tablet 40 mg PO DAILY 05/20/22 05/20/22 History spironolactone 25 mg/5 mL oral 100 mg PO DAILY 05/20/22 05/20/22 History suspension (CaroSpir) omeprazole 20 mg capsule,delayed 20 mg PO DAILY #30 caps 05/22/22 Rx release sucralfate 1 gram tablet (Carafate) 1 g PO BID #60 tabs 05/22/22 Rx sucralfate 100 mg/mL oral 1 g (10 mL) PO BID 30 days #600 mL 05/22/22 Rx suspension Hospital Stay Data Consultations 05/20/22 21:12 ED Decision to Admit Stat 05/21/22 08:00 Consult Gastroenterology Routine Procedures Performed Operation Date: 05/21/22 16:30 Actual Procedures p EGD Biopsy Cytology - Elizabeth Jean, DO Pending Results Patient Have Any Pending Studies at Discharge: Yes Discharge Instructions Given to Patient (Per Discharging Provider) PLEASE REFER TO YOUR NEW MEDICATION LIST AND FOLLOW INSTRUCTIONS CAREFULLY. YOUR NEW MEDICATIONS INCLUDE: Omeprazole, sucralfate-antacid to prevent GI bleed Take omeprazole at least 30 minutes before first meal of the day. Please make sure that you are also well-hydrated every day. Do not take medications under the class of NSAIDs including ibuprofen, naproxen, etc. PLEASE CALL YOUR PRIMARY CARE PHYSICIAN OR RETURN TO THE ER IF WITH WORSENING OF SYMPTOMS, INCLUDING Abdominal pain, persistent black stools, bloody stools, nausea/vomiting, weakness, dizziness, palpitations, etc. FOLLOW UP WITH PRIMARY CARE PHYSICIAN in 1 week. Follow-up with your art professor in 2 weeks. Total Time Total Time Spent Total Time Spent (In Minutes): >30 minutes
== END 2022-05-22 11:39 | disposition home or self-care (01) | DRG 378 ==
LOC: ED 14:32 → INTOOBSV 05-21 01:32 → 2N 05-21 01:32 → SUATTDRO 05-21 01:32 → 2N 05-21 02:00